=== PATIENT | female | born 1975 | race Caucasian/White ===

== ENCOUNTER → 2019-04-26 14:27 | Outpatient (BNVA) | payer OTHER, SELFPAY | PROVIDERS: Family Provider Family Medicine; PCP Family Medicine; Referring Provider Internal Medicine Rheumatology; Visit Provider Internal Medicine Rheumatology | DX: M05.9 Rheumatoid arthritis with rheumatoid factor, unspecified (principal); Z79.899 Other long term (current) drug therapy; Z11.59 Encounter for screening for other viral diseases; Z72.89 Other problems related to lifestyle | CPT/HCPCS: 36415; 80076; 82565; 85651; 86140; 86704; 99214 ==

== ENCOUNTER → 2019-04-26 15:11 | Outpatient (BNVA) | payer OTHER, SELFPAY | PROVIDERS: Family Provider Family Medicine; PCP Family Medicine; Referring Provider Internal Medicine Rheumatology; Visit Provider Internal Medicine Rheumatology | DX: Z79.899 Other long term (current) drug therapy (principal); Z11.59 Encounter for screening for other viral diseases; M05.741 Rheumatoid arthritis with rheumatoid factor of right hand without organ or systems involvement; Z71.89 Other specified counseling | CPT/HCPCS: 85025 ==

== ENCOUNTER → 2019-07-19 14:52 | Outpatient (BNVA) | payer OTHER, SELFPAY | PROVIDERS: Family Provider Family Medicine; PCP Family Medicine; Visit Provider Internal Medicine Rheumatology | DX: Z79.899 Other long term (current) drug therapy (principal) | CPT/HCPCS: 36415; 80076; 82565; 85025; 85651; 86140 ==

== ENCOUNTER → 2019-08-15 13:14 | Outpatient (BNVA) | payer OTHER, SELFPAY | PROVIDERS: Family Provider Family Medicine; PCP Family Medicine; Visit Provider Internal Medicine Rheumatology | DX: M05.79 Rheumatoid arthritis with rheumatoid factor of multiple sites without organ or systems involvement (principal); Z79.899 Other long term (current) drug therapy; R53.83 Other fatigue; G47.9 Sleep disorder, unspecified; Z92.241 Personal history of systemic steroid therapy | CPT/HCPCS: 99214 ==

== ENCOUNTER → 2019-09-18 12:55 | Outpatient (BNVA) | payer OTHER, SELFPAY | PROVIDERS: Family Provider Family Medicine; PCP Family Medicine; Visit Provider Internal Medicine Rheumatology | DX: Z79.899 Other long term (current) drug therapy (principal) | CPT/HCPCS: 36415; 80076; 82565; 85025; 85651; 86140 ==

== ENCOUNTER → 2019-12-21 10:25 | Outpatient (BNVA) | payer OTHER, SELFPAY | PROVIDERS: Family Provider Family Medicine; PCP Family Medicine; Visit Provider Internal Medicine Rheumatology | DX: M05.79 Rheumatoid arthritis with rheumatoid factor of multiple sites without organ or systems involvement (principal); Z79.52 Long term (current) use of systemic steroids; G47.9 Sleep disorder, unspecified; Z79.899 Other long term (current) drug therapy | CPT/HCPCS: 36415; 80076; 82565; 85025; 85651; 86140; 99214 ==

== ENCOUNTER 2020-05-01 11:33 | Outpatient (CLI) | payer OTHER, SELFPAY ==
[2020-05-01 12:11] LABS: Basophils % 0.5 %; Eosinophils # 0.3 10^3/uL (0.0-0.8); Eosinophils % 3.7 %; Hematocrit 36.7 % (37.0-47.0); Hemoglobin 12.3 g/dL (11.5-15.3); Lymphocytes # 3.5 10^3/uL (0.8-4.8); Lymphocytes % 40.9 %; Mean Corpuscular HGB Conc 33.5 g/dL (30.0-36.0); Mean Corpuscular Volume 98.4 fL (81-99); Monocytes # 0.6 10^3/uL (0.2-0.9); Monocytes % 6.8 %; Neutrophils # 4.09 10^3/uL (1.8-7.7); Neutrophils % 47.9 %; Nucleated Red Blood Cells % 0 %; Platelet Count 229 10^3/cmm (130-400); Red Blood Count 3.73 10^6/uL (4.1-5.3); Red Cell Distribution Width 13.5 % (12.1-15.1); White Blood Count 8.5 10^3/uL (4.0-10.0)
[2020-05-01 12:27] LABS: Alanine Aminotransferase 35 U/L (0-33); Albumin Level 4.4 g/dL (3.5-5.2); Alkaline Phosphatase 89 IU/L (35-105); Aspartate Amino Transferase 28 U/L (0-32); C Reactive Protein 7.6 mg/L (0.0-4.9); Globulin 3.1 g/dL (1.3-4.6); Glomerular Filtration Rate 90.9 mL/min (90-130); Total Bilirubin 0.3 mg/dL (0.15-1.2); Total Protein 7.5 g/dL (6.6-8.7)
== END 2020-05-01 11:34 | disposition home or self-care (01) ==
PROVIDERS: PCP Family Medicine; Visit Provider Internal Medicine Rheumatology
DX: M05.79 Rheumatoid arthritis with rheumatoid factor of multiple sites without organ or systems involvement (principal); M05.9 Rheumatoid arthritis with rheumatoid factor, unspecified; Z79.899 Other long term (current) drug therapy
CPT/HCPCS: 36415; 80076; 82565; 85025; 86140

== ENCOUNTER → 2020-05-07 08:50 | Outpatient (BNVA) | payer OTHER, SELFPAY | PROVIDERS: PCP Family Medicine; Visit Provider Internal Medicine Rheumatology | DX: M05.79 Rheumatoid arthritis with rheumatoid factor of multiple sites without organ or systems involvement (principal); Z79.899 Other long term (current) drug therapy; Z11.1 Encounter for screening for respiratory tuberculosis | CPT/HCPCS: 99214 ==

== ENCOUNTER 2020-05-07 09:47 | Outpatient (CLI) | payer OTHER, SELFPAY ==
[2020-05-09 15:18] LABS: Quantiferon Mitogen 8.39 IU/mL; Quantiferon Nil 0.05 IU/mL; Quantiferon TB Gold NEGATIVE (NEGATIVE)
== END 2020-05-07 09:48 | disposition home or self-care (01) ==
PROVIDERS: PCP Family Medicine; Visit Provider Internal Medicine Rheumatology
DX: Z79.899 Other long term (current) drug therapy (principal); Z11.59 Encounter for screening for other viral diseases; M05.79 Rheumatoid arthritis with rheumatoid factor of multiple sites without organ or systems involvement
CPT/HCPCS: 36415; 86480

== ENCOUNTER → 2020-07-31 09:45 | Outpatient (BNVA) | payer OTHER, SELFPAY | PROVIDERS: PCP Family Medicine; Visit Provider Internal Medicine Rheumatology | DX: M05.79 Rheumatoid arthritis with rheumatoid factor of multiple sites without organ or systems involvement (principal); Z79.899 Other long term (current) drug therapy | CPT/HCPCS: 36415; 80076; 82565; 85025; 86140 ==

== ENCOUNTER → 2020-08-05 08:49 | Outpatient (BNVA) | payer OTHER, SELFPAY | PROVIDERS: PCP Family Medicine; Visit Provider Internal Medicine Rheumatology | DX: M05.79 Rheumatoid arthritis with rheumatoid factor of multiple sites without organ or systems involvement (principal); Z79.899 Other long term (current) drug therapy; Z79.52 Long term (current) use of systemic steroids | CPT/HCPCS: 99214 ==

== ENCOUNTER → 2020-09-03 13:18 | Outpatient (BNVA) | payer OTHER, SELFPAY | PROVIDERS: PCP Family Medicine; Visit Provider Internal Medicine Rheumatology | DX: M05.79 Rheumatoid arthritis with rheumatoid factor of multiple sites without organ or systems involvement (principal); Z79.899 Other long term (current) drug therapy; Z71.89 Other specified counseling | CPT/HCPCS: 36415; 80076; 82565; 85025; 86140 ==

== ENCOUNTER 2020-10-22 08:11 | Outpatient (CLI) | payer OTHER, SELFPAY ==
--- NOTE | 2020-10-22 08:17 | MM_ITS ---
WS: [id number] BILATERAL DIGITAL SCREENING MAMMOGRAPHY WITH CAD CLINICAL INFORMATION: SCREENING HISTORY: Screening mammogram. No current complaints. COMPARISON: None. TECHNIQUE: Bilateral CC and MLO views. FINDINGS: Scattered fibroglandular densities bilaterally. No suspicious focal mass, asymmetry, calcifications, or architectural distortion. No evidence of malignancy. MM/[place] [id number] IMPRESSION: BI-RADS: 1-Negative FOLLOW UP: 1 Year Follow-up Recommend return to annual screening mammography.
== END 2020-10-22 08:12 | disposition home or self-care (01) ==
PROVIDERS: PCP Family Medicine; Visit Provider Family Medicine
DX: Z12.31 Encounter for screening mammogram for malignant neoplasm of breast (principal)
CPT/HCPCS: 77067

== ENCOUNTER → 2020-10-29 09:02 | Outpatient (BNVA) | payer OTHER, SELFPAY | PROVIDERS: PCP Family Medicine; Visit Provider Internal Medicine Rheumatology | DX: M05.79 Rheumatoid arthritis with rheumatoid factor of multiple sites without organ or systems involvement (principal) | CPT/HCPCS: 36415; 80076; 82565; 85025; 86140 ==

== ENCOUNTER → 2020-11-05 09:03 | Outpatient (BNVA) | payer OTHER, SELFPAY | PROVIDERS: PCP Family Medicine; Visit Provider Internal Medicine Rheumatology | DX: M05.79 Rheumatoid arthritis with rheumatoid factor of multiple sites without organ or systems involvement (principal); R53.83 Other fatigue; Z79.899 Other long term (current) drug therapy; Z79.52 Long term (current) use of systemic steroids; Z71.89 Other specified counseling | CPT/HCPCS: 36415; 82306; 84439; 84443; 99214 ==

== ENCOUNTER 2021-02-25 08:35 | Outpatient (CLI) | payer OTHER, SELFPAY ==
[2021-02-25 09:16] LABS: Basophils % 0.5 %; Eosinophils # 0.5 10^3/uL (0.0-0.8); Eosinophils % 6.8 %; Hematocrit 39.6 % (37.0-47.0); Hemoglobin 13.2 g/dL (11.5-15.3); Lymphocytes # 2.4 10^3/uL (0.8-4.8); Lymphocytes % 35.8 %; Mean Corpuscular HGB Conc 33.3 g/dL (30.0-36.0); Mean Corpuscular Hemoglobin 33.2 pg (28.0-34.0); Mean Corpuscular Volume 99.7 fl (81-99); Mean Platelet Volume 9.3 fL (7.4-10.4); Monocytes # 0.4 10^3/uL (0.2-0.9); Monocytes % 6.7 %; Neutrophils # 3.28 10^3/uL (1.8-7.7); Neutrophils % 49.9 %; Nucleated Red Blood Cells % 0 %; Platelet Count 202 10^3/cmm (130-400); Red Blood Count 3.97 10^6/uL (4.1-5.3); Red Cell Distribution Width 12.1 % (12.1-15.1); White Blood Count 6.6 10^3/uL (4.0-10.0)
[2021-02-25 09:33] LABS: Alanine Aminotransferase 54 U/L (0-33); Albumin Level 4.5 g/dL (3.5-5.2); Alkaline Phosphatase 90 IU/L (35-105); Aspartate Amino Transferase 33 U/L (0-32); C Reactive Protein 5.2 mg/L (0.0-4.9); Globulin 2.7 g/dL (1.3-4.6); Glomerular Filtration Rate 108.6 mL/min (90-130); Total Bilirubin 0.3 mg/dL (0.15-1.2); Total Protein 7.2 g/dL (6.6-8.7)
[2021-04-17 08:38] LABS: Alanine Aminotransferase 23 U/L (0-33); Albumin Level 4.3 g/dL (3.5-5.2); Alkaline Phosphatase 93 IU/L (35-105); Aspartate Amino Transferase 28 U/L (0-32); Globulin 3.4 g/dL (1.3-4.6); Total Bilirubin 0.3 mg/dL (0.15-1.2); Total Protein 7.7 g/dL (6.6-8.7)
== END 2021-02-25 08:36 | disposition home or self-care (01) ==
PROVIDERS: PCP Family Medicine; Visit Provider Internal Medicine Rheumatology
DX: M05.79 Rheumatoid arthritis with rheumatoid factor of multiple sites without organ or systems involvement (principal); Z79.899 Other long term (current) drug therapy
CPT/HCPCS: 36415; 80076; 82565; 85025; 86140

== ENCOUNTER 2021-04-17 07:43 | Outpatient (CLI) | payer OTHER, SELFPAY | END 2021-04-17 07:44 | disposition home or self-care (01) | PROVIDERS: PCP Family Medicine; Visit Provider Internal Medicine Rheumatology | DX: Z79.899 Other long term (current) drug therapy (principal); M05.79 Rheumatoid arthritis with rheumatoid factor of multiple sites without organ or systems involvement | CPT/HCPCS: 36415; 80076 ==

== ENCOUNTER 2021-07-04 11:23 | Outpatient (CLI) | payer OTHER, SELFPAY ==
[2021-07-04 12:00] LABS: Basophils # 0.1 10^3/uL (0.0-0.1); Basophils % 0.8 %; Eosinophils # 0.4 10^3/uL (0.0-0.8); Eosinophils % 5.1 %; Hematocrit 39.4 % (37.0-47.0); Hemoglobin 13.3 g/dL (11.5-15.3); Lymphocytes # 3.7 10^3/uL (0.8-4.8); Lymphocytes % 52.3 %; Mean Corpuscular HGB Conc 33.8 g/dL (30.0-36.0); Mean Corpuscular Hemoglobin 32.5 pg (28.0-34.0); Mean Corpuscular Volume 96.3 fl (81-99); Mean Platelet Volume 9.2 fL (7.4-10.4); Monocytes # 0.5 10^3/uL (0.2-0.9); Monocytes % 6.8 %; Neutrophils # 2.46 10^3/uL (1.8-7.7); Neutrophils % 34.7 %; Nucleated Red Blood Cells % 0 %; Platelet Count 325 10^3/cmm (130-400); Red Blood Count 4.09 10^6/uL (4.1-5.3); White Blood Count 7.1 10^3/uL (4.0-10.0)
[2021-07-04 12:11] LABS: Alkaline Phosphatase 105 IU/L (35-105); C Reactive Protein 5.8 mg/L (0.0-4.9); Glomerular Filtration Rate 108.1 mL/min (90-130); Total Bilirubin 0.3 mg/dL (0.15-1.2)
[2021-07-04 12:13] LABS: Alanine Aminotransferase 38 U/L (0-33); Aspartate Amino Transferase 43 U/L (0-32)
== END 2021-07-04 11:24 | disposition home or self-care (01) ==
PROVIDERS: PCP Family Medicine; Visit Provider Internal Medicine Rheumatology
DX: M05.79 Rheumatoid arthritis with rheumatoid factor of multiple sites without organ or systems involvement (principal); Z79.899 Other long term (current) drug therapy
CPT/HCPCS: 80076; 82565; 85025; 86140

== ENCOUNTER 2021-10-30 09:26 | Outpatient (CLI) | payer OTHER, SELFPAY ==
[2021-10-30 10:02] LABS: Basophils # 0.1 10^3/uL (0.0-0.1); Basophils % 0.6 %; Eosinophils # 0.3 10^3/uL (0.0-0.8); Hematocrit 39.8 % (37.0-47.0); Hemoglobin 13.6 g/dL (11.5-15.3); Lymphocytes # 3.6 10^3/uL (0.8-4.8); Lymphocytes % 46.4 %; Mean Corpuscular HGB Conc 34.2 g/dL (30.0-36.0); Mean Corpuscular Hemoglobin 32.6 pg (28.0-34.0); Mean Corpuscular Volume 95.4 fl (81-99); Mean Platelet Volume 9.6 fL (7.4-10.4); Monocytes # 0.6 10^3/uL (0.2-0.9); Monocytes % 7.5 %; Neutrophils # 3.23 10^3/uL (1.8-7.7); Neutrophils % 41.2 %; Nucleated Red Blood Cells % 0 %; Platelet Count 205 10^3/cmm (130-400); Red Blood Count 4.17 10^6/uL (4.1-5.3); Red Cell Distribution Width 11.9 % (12.1-15.1); White Blood Count 7.8 10^3/uL (4.0-10.0)
[2021-10-30 10:25] LABS: Alanine Aminotransferase 16 U/L (0-33); Albumin Level 4.5 g/dL (3.5-5.2); Alkaline Phosphatase 97 U/L (35-105); Aspartate Amino Transferase 19 U/L (0-32); C Reactive Protein 4.1 mg/L (0.0-4.9); Globulin 3.2 g/dL (1.3-4.6); Glomerular Filtration Rate 90.5 mL/min (90-130); Total Bilirubin 0.3 mg/dL (0.15-1.2); Total Protein 7.7 g/dL (6.6-8.7)
== END 2021-10-30 09:27 | disposition home or self-care (01) ==
LOC: LAB 09:30
PROVIDERS: PCP Family Medicine; Visit Provider Internal Medicine Rheumatology
DX: M05.79 Rheumatoid arthritis with rheumatoid factor of multiple sites without organ or systems involvement (principal); Z79.899 Other long term (current) drug therapy
CPT/HCPCS: 80076; 82565; 85025; 86140

== ENCOUNTER 2022-02-05 13:01 | Outpatient (CLI) | payer OTHER, SELFPAY ==
[2022-02-05 13:26] LABS: Basophils # 0.1 10^3/uL (0.0-0.1); Basophils % 0.5 %; Eosinophils # 0.6 10^3/uL (0.0-0.8); Eosinophils % 5.5 %; Hematocrit 40.1 % (37.0-47.0); Hemoglobin 13.4 g/dL (11.5-15.3); Lymphocytes # 4.5 10^3/uL (0.8-4.8); Lymphocytes % 42.9 %; Mean Corpuscular HGB Conc 33.4 g/dL (30.0-36.0); Mean Corpuscular Hemoglobin 32.4 pg (28.0-34.0); Mean Corpuscular Volume 97.1 fl (81-99); Mean Platelet Volume 9.1 fL (7.4-10.4); Monocytes # 0.6 10^3/uL (0.2-0.9); Monocytes % 5.6 %; Neutrophils # 4.74 10^3/uL (1.8-7.7); Neutrophils % 45.3 %; Nucleated Red Blood Cells % 0 %; Platelet Count 268 10^3/cmm (130-400); Red Blood Count 4.13 10^6/uL (4.1-5.3); Red Cell Distribution Width 11.9 % (12.1-15.1); White Blood Count 10.4 10^3/uL (4.0-10.0)
[2022-02-05 13:47] LABS: Alanine Aminotransferase 9 U/L (0-33); Albumin Level 4.3 g/dL (3.5-5.2); Alkaline Phosphatase 96 U/L (35-105); Aspartate Amino Transferase 19 U/L (0-32); C Reactive Protein 6.1 mg/L (0.0-4.9); Globulin 3.8 g/dL (1.3-4.6); Glomerular Filtration Rate 90.5 mL/min (90-130); Total Bilirubin 0.2 mg/dL (0.15-1.2); Total Protein 8.1 g/dL (6.6-8.7)
== END 2022-02-05 13:02 | disposition home or self-care (01) ==
PROVIDERS: PCP Family Medicine; Visit Provider Internal Medicine Rheumatology
DX: M05.79 Rheumatoid arthritis with rheumatoid factor of multiple sites without organ or systems involvement (principal); Z79.899 Other long term (current) drug therapy
CPT/HCPCS: 36415; 80076; 82565; 85025; 86140

== ENCOUNTER 2022-06-11 08:02 | Outpatient (CLI) | payer OTHER, SELFPAY ==
[2022-06-11 08:19] LABS: Basophils % 0.4 %; Eosinophils # 0.5 10^3/uL (0.0-0.8); Hematocrit 36.4 % (37.0-47.0); Lymphocytes # 3.4 10^3/uL (0.8-4.8); Lymphocytes % 45.3 %; Mean Corpuscular Hemoglobin 31.7 pg (28.0-34.0); Monocytes # 0.5 10^3/uL (0.2-0.9); Monocytes % 6.5 %; Neutrophils # 3.12 10^3/uL (1.8-7.7); Neutrophils % 41.5 %; Nucleated Red Blood Cells % 0 %; Platelet Count 277 10^3/cmm (130-400); Red Blood Count 3.79 10^6/uL (4.1-5.3); Red Cell Distribution Width 12.6 % (12.1-15.1); White Blood Count 7.5 10^3/uL (4.0-10.0)
[2022-06-11 08:48] LABS: Alanine Aminotransferase 50 U/L (0-33); Albumin Level 4.1 g/dL (3.5-5.2); Alkaline Phosphatase 90 U/L (35-105); Aspartate Amino Transferase 37 U/L (0-32); C Reactive Protein 7.1 mg/L (0.0-4.9); Globulin 3.4 g/dL (1.3-4.6); Glomerular Filtration Rate 90.1 mL/min (90-130); Total Bilirubin 0.3 mg/dL (0.15-1.2); Total Protein 7.5 g/dL (6.6-8.7)
== END 2022-06-11 08:03 | disposition home or self-care (01) ==
LOC: LAB 08:06
PROVIDERS: PCP Family Medicine; Visit Provider Internal Medicine Rheumatology
DX: M05.79 Rheumatoid arthritis with rheumatoid factor of multiple sites without organ or systems involvement (principal); Z79.899 Other long term (current) drug therapy
CPT/HCPCS: 36415; 80076; 82565; 85025; 86140

== ENCOUNTER 2022-07-17 11:22 | Outpatient (CLI) | payer OTHER, SELFPAY ==
[2022-07-17 12:27] LABS: Alanine Aminotransferase 14 U/L (0-33); Albumin Level 4.4 g/dL (3.5-5.2); Alkaline Phosphatase 100 U/L (35-105); Aspartate Amino Transferase 19 U/L (0-32); Globulin 3.5 g/dL (1.3-4.6); Total Bilirubin 0.3 mg/dL (0.15-1.2); Total Protein 7.9 g/dL (6.6-8.7)
== END 2022-07-17 11:23 | disposition home or self-care (01) ==
LOC: RAD 11:25
PROVIDERS: PCP Family Medicine; Visit Provider Internal Medicine Rheumatology
DX: M05.9 Rheumatoid arthritis with rheumatoid factor, unspecified (principal); Z79.899 Other long term (current) drug therapy
CPT/HCPCS: 36415; 80076

== ENCOUNTER 2022-10-13 08:02 | Outpatient (CLI) | payer OTHER, SELFPAY ==
[2022-10-13 08:20] LABS: Basophils % 0.5 %; Eosinophils # 0.4 10^3/uL (0.0-0.8); Eosinophils % 5.8 %; Hematocrit 35.8 % (36-47); Lymphocytes # 3.1 10^3/uL (0.8-4.8); Lymphocytes % 48.5 %; Mean Corpuscular HGB Conc 33.2 g/dL (30-55); Mean Corpuscular Hemoglobin 32.2 pg (27-33); Mean Corpuscular Volume 96.8 fl (85-98); Mean Platelet Volume 9.2 fL (7.4-10.4); Monocytes # 0.5 10^3/uL (0.2-0.9); Monocytes % 7.8 %; Neutrophils % 37.2 %; Nucleated Red Blood Cells % 0 %; Platelet Count 222 10^3/cmm (157-399); Red Cell Distribution Width 12.5 % (12.1-15.1); White Blood Count 6.43 10^3/uL (3.29-11.43)
[2022-10-13 08:38] LABS: Alanine Aminotransferase 18 U/L (0-33); Albumin Level 4.1 g/dL (3.5-5.2); Alkaline Phosphatase 80 U/L (35-105); Aspartate Amino Transferase 22 U/L (0-32); C Reactive Protein 7.3 mg/L (0.0-4.9); Glomerular Filtration Rate 90.1 mL/min (90-130); Total Bilirubin 0.3 mg/dL (0.15-1.2); Total Protein 7.1 g/dL (6.6-8.7)
== END 2022-10-13 08:03 | disposition home or self-care (01) ==
PROVIDERS: PCP Family Medicine; Visit Provider Internal Medicine Rheumatology
DX: M05.79 Rheumatoid arthritis with rheumatoid factor of multiple sites without organ or systems involvement (principal); Z79.899 Other long term (current) drug therapy
CPT/HCPCS: 36415; 80076; 82565; 85025; 86140

== ENCOUNTER → 2023-02-16 10:23 | Outpatient (BNVA) | payer OTHER, SELFPAY | PROVIDERS: PCP Family Medicine; Visit Provider Internal Medicine Rheumatology | DX: M05.79 Rheumatoid arthritis with rheumatoid factor of multiple sites without organ or systems involvement (principal); Z79.899 Other long term (current) drug therapy; Z71.89 Other specified counseling | CPT/HCPCS: 36415; 80076; 82565; 85025; 86140 ==

== ENCOUNTER 2023-05-20 07:57 | Outpatient (CLI) | payer OTHER, SELFPAY ==
[2023-05-20 08:22] LABS: Basophils % 0.3 %; Eosinophils # 0.4 10^3/uL (0.0-0.8); Eosinophils % 5.4 %; Hematocrit 37.2 % (36-47); Lymphocytes % 40.3 %; Mean Corpuscular HGB Conc 33.1 g/dL (30-55); Mean Corpuscular Hemoglobin 32.2 pg (27-33); Mean Corpuscular Volume 97.4 fl (85-98); Mean Platelet Volume 9.1 fL (7.4-10.4); Monocytes # 0.6 10^3/uL (0.2-0.9); Monocytes % 7.3 %; Neutrophils # 3.51 10^3/uL (1.8-7.7); Neutrophils % 46.6 %; Nucleated Red Blood Cells % 0 %; Platelet Count 213 10^3/cmm (157-399); Red Blood Count 3.82 10^6/uL (3.85-5.65); Red Cell Distribution Width 12.5 % (12.1-15.1); White Blood Count 7.54 10^3/uL (3.29-11.43)
[2023-05-20 08:41] LABS: Alanine Aminotransferase 28 U/L (0-33); Albumin Level 4.1 g/dL (3.5-5.2); Alkaline Phosphatase 89 U/L (35-105); Aspartate Amino Transferase 27 U/L (0-32); C Reactive Protein 6.1 mg/L (0.0-4.9); Globulin 3.2 g/dL (1.3-4.6); Glomerular Filtration Rate 89.7 mL/min (90-130); Total Bilirubin 0.2 mg/dL (0.15-1.2); Total Protein 7.3 g/dL (6.6-8.7)
== END 2023-05-20 07:58 | disposition home or self-care (01) ==
LOC: LAB 07:58
PROVIDERS: PCP Family Medicine; Visit Provider Internal Medicine Rheumatology
DX: M05.79 Rheumatoid arthritis with rheumatoid factor of multiple sites without organ or systems involvement (principal); Z79.899 Other long term (current) drug therapy
CPT/HCPCS: 36415; 80076; 82565; 85025; 86140

== ENCOUNTER 2023-05-28 10:16 | Outpatient (CLI) | payer OTHER, SELFPAY ==
--- NOTE | 2023-05-28 10:21 | MM_ITS ---
WS: [id number] BILATERAL SCREENING DIGITAL TOMOSYNTHESIS MAMMOGRAM WITH CAD HISTORY: SCREENING COMPARISON: 10/22/2020 Bilateral CC and MLO views with tomosynthesis and synthetic mammography submitted. Computer aided det ection analyzed. Breast composition: There are scattered areas of fibroglandular density. No suspicious masses, microc alcifications or architectural distortion. IMPRESSION: MM/[place] [id number] BI-RADS: 1-Negative FOLLOW UP: 1 Year Follow-up
== END 2023-05-28 10:17 | disposition home or self-care (01) ==
LOC: RAD 10:16
PROVIDERS: PCP Family Medicine; Visit Provider Family Medicine
DX: Z12.31 Encounter for screening mammogram for malignant neoplasm of breast (principal)
CPT/HCPCS: 77063; 77067

== ENCOUNTER 2023-08-18 10:44 | Outpatient (CLI) | payer OTHER, SELFPAY ==
[2023-08-18 11:14] LABS: Basophils % 0.5 %; Eosinophils # 0.3 10^3/uL (0.0-0.8); Eosinophils % 3.9 %; Hematocrit 37.9 % (36-47); Lymphocytes # 3.6 10^3/uL (0.8-4.8); Lymphocytes % 44.9 %; Mean Corpuscular HGB Conc 33.8 g/dL (30-55); Mean Corpuscular Hemoglobin 32.2 pg (27-33); Mean Corpuscular Volume 95.2 fl (85-98); Mean Platelet Volume 9.6 fL (7.4-10.4); Monocytes # 0.5 10^3/uL (0.2-0.9); Monocytes % 6.1 %; Neutrophils # 3.53 10^3/uL (1.8-7.7); Neutrophils % 44.5 %; Nucleated Red Blood Cells % 0 %; Platelet Count 229 10^3/cmm (157-399); Red Blood Count 3.98 10^6/uL (3.85-5.65); Red Cell Distribution Width 12.8 % (12.1-15.1); White Blood Count 7.93 10^3/uL (3.29-11.43)
[2023-08-18 11:38] LABS: Alanine Aminotransferase 21 U/L (0-33); Albumin Level 4.3 g/dL (3.5-5.2); Alkaline Phosphatase 86 U/L (35-105); Aspartate Amino Transferase 20 U/L (0-32); C Reactive Protein 3.9 mg/L (0.0-4.9); Globulin 3.6 g/dL (1.3-4.6); Glomerular Filtration Rate 76.9 mL/min (90-130); Total Bilirubin 0.2 mg/dL (0.15-1.2); Total Protein 7.9 g/dL (6.6-8.7)
== END 2023-08-18 10:45 | disposition home or self-care (01) ==
LOC: LAB 10:46
PROVIDERS: PCP Family Medicine; Visit Provider Internal Medicine Rheumatology
DX: M05.79 Rheumatoid arthritis with rheumatoid factor of multiple sites without organ or systems involvement (principal); Z79.899 Other long term (current) drug therapy
CPT/HCPCS: 36415; 80076; 82565; 85025; 86140

== ENCOUNTER → 2023-10-25 11:44 | Outpatient (BNVA) | payer OTHER, SELFPAY | PROVIDERS: PCP Family Medicine; Visit Provider Obstetrics & Gynecology | DX: Z01.419 Encounter for gynecological examination (general) (routine) without abnormal findings (principal) | CPT/HCPCS: 87624 ==

== ENCOUNTER 2023-11-26 08:03 | Outpatient (CLI) | payer OTHER, SELFPAY ==
[2023-11-26 08:26] LABS: Basophils % 0.3 %; Eosinophils # 0.2 10^3/uL (0.0-0.8); Eosinophils % 3.3 %; Hematocrit 36.4 % (36-47); Lymphocytes # 2.6 10^3/uL (0.8-4.8); Lymphocytes % 35.9 %; Mean Corpuscular HGB Conc 33.5 g/dL (30-55); Mean Corpuscular Hemoglobin 32.8 pg (27-33); Mean Corpuscular Volume 97.8 fl (85-98); Mean Platelet Volume 9.2 fL (7.4-10.4); Monocytes # 0.5 10^3/uL (0.2-0.9); Monocytes % 6.2 %; Neutrophils # 3.94 10^3/uL (1.8-7.7); Nucleated Red Blood Cells % 0 %; Platelet Count 256 10^3/cmm (157-399); Red Blood Count 3.72 10^6/uL (3.85-5.65); Red Cell Distribution Width 13.1 % (12.1-15.1); White Blood Count 7.29 10^3/uL (3.29-11.43)
[2023-11-26 08:41] LABS: Erythrocyte Sedimentation Rate 7 mm/hr (0-15)
[2023-11-26 08:49] LABS: Alanine Aminotransferase 19 U/L (0-33); Albumin Level 4.2 g/dL (3.5-5.2); Alkaline Phosphatase 77 U/L (35-105); Aspartate Amino Transferase 16 U/L (0-32); C Reactive Protein 20.3 mg/L (0.0-4.9); Globulin 3.2 g/dL (1.3-4.6); Glomerular Filtration Rate 76.9 mL/min (90-130); Total Bilirubin 0.3 mg/dL (0.15-1.2); Total Protein 7.4 g/dL (6.6-8.7)
[2023-11-29 13:25] LABS: Quantiferon Mitogen 7.77 IU/mL; Quantiferon Nil 0.02 IU/mL; Quantiferon Plus TB1 0.01 IU/mL; Quantiferon Plus TB2 0.01 IU/mL; Quantiferon TB Gold NEGATIVE (NEGATIVE)
== END 2023-11-26 08:04 | disposition home or self-care (01) ==
LOC: LAB 08:04
PROVIDERS: PCP Family Medicine; Visit Provider Internal Medicine Rheumatology
DX: Z79.899 Other long term (current) drug therapy (principal); M05.79 Rheumatoid arthritis with rheumatoid factor of multiple sites without organ or systems involvement; Z11.1 Encounter for screening for respiratory tuberculosis
CPT/HCPCS: 36415; 80076; 82565; 85025; 85651; 86140; 86480

== ENCOUNTER 2024-02-25 11:25 | Outpatient (CLI) | payer OTHER, SELFPAY ==
[2024-02-25 11:48] LABS: Basophils % 0.4 %; Eosinophils # 0.4 10^3/uL (0.0-0.8); Eosinophils % 3.9 %; Hematocrit 35.7 % (36-47); Lymphocytes # 3.1 10^3/uL (0.8-4.8); Lymphocytes % 29.4 %; Mean Corpuscular HGB Conc 33.9 g/dL (30-55); Mean Corpuscular Hemoglobin 32.4 pg (27-33); Mean Corpuscular Volume 95.5 fl (85-98); Mean Platelet Volume 9.4 fL (7.4-10.4); Monocytes # 0.6 10^3/uL (0.2-0.9); Monocytes % 5.9 %; Neutrophils # 6.42 10^3/uL (1.8-7.7); Nucleated Red Blood Cells % 0 %; Platelet Count 239 10^3/cmm (157-399); Red Blood Count 3.74 10^6/uL (3.85-5.65); Red Cell Distribution Width 12.2 % (12.1-15.1); White Blood Count 10.69 10^3/uL (3.29-11.43)
[2024-02-25 11:51] LABS: Erythrocyte Sedimentation Rate 22 mm/hr (0-15)
[2024-02-25 12:03] LABS: Alanine Aminotransferase 6 U/L (0-33); Albumin Level 3.9 g/dL (3.5-5.2); Alkaline Phosphatase 111 U/L (35-105); Aspartate Amino Transferase 11 U/L (0-32); C Reactive Protein 143.1 mg/L (0.0-4.9); Globulin 3.9 g/dL (1.3-4.6); Glomerular Filtration Rate 107.2 mL/min (90-130); Total Bilirubin 0.2 mg/dL (0.15-1.2); Total Protein 7.8 g/dL (6.6-8.7)
== END 2024-02-25 11:26 | disposition home or self-care (01) ==
LOC: LAB 11:28
PROVIDERS: PCP Family Medicine; Visit Provider Internal Medicine Rheumatology
DX: M05.79 Rheumatoid arthritis with rheumatoid factor of multiple sites without organ or systems involvement (principal); Z79.899 Other long term (current) drug therapy
CPT/HCPCS: 80076; 82565; 85025; 85651; 86140

== ENCOUNTER 2024-03-23 11:41 | Day surgery (SDC) | payer OTHER, SELFPAY ==
[2024-03-23] VITALS (9 sets, daily range): BP systolic 126–150; BP diastolic 81–101; PULSE 80–120; RESP 16–18; TEMP 36.1–36.8; O2SAT 97–100; BMI 27.4
--- NOTE | 2024-03-23 03:45 | W.PM.OPSFHP ---
Same Day Surgery H&P Indication for Procedure/HPI DATE OF PROCEDURE: March 23, 2024 CHIEF COMPLAINT/INDICATIONFOR SURGICAL PROCEDURE: abnormal uterine bleeding PREOP DIAGNOSIS: abnormal uterine bleeding PLANNED PROCEDURE: Operation Date: 03/23/24 13:30 Proposed Procedures p Hysteroscopy w/ Endometrial Sampling 74854, N93.9(Not Applicable) - David Gillette MD s Possible Poylpectomy(Not Applicable) - David Gillette MD 49 y.o. with abnormal uterine bleeding, prolonged and heavy menstrual bleeding, now scheduled for hysteroscopy, endometrial sampling, and possible endometrial polypectomy Medications/Allergies* Home Medications ?Medication ?Instructions ?Recorded ?Confirmed ?Type multivitamin 1 tab PO DAILY 10/25/23 03/22/24 History paroxetine HCl 10 mg tablet 10 mg PO .HS 02/29/24 03/22/24 History ergocalciferol (vitamin D2) 400 50 mcg PO DAILY 03/22/24 03/22/24 History unit capsule vitamin B complex tab PO 03/22/24 History zinc 50 mg tablet 50 mg PO DAILY 03/22/24 03/22/24 History Allergies/Adverse Reactions Allergy/AdvReac Type Severity Reaction Status Date / Time amoxicillin Allergy Unknown Verified 03/22/24 08:47 aspirin AdvReac Intermediate N/V Verified 03/22/24 08:47 Pertinent History/Comorbid Conditions* Medical History (Updated 11/08/23 @ 00:07 by David Gillette MD) Transaminitis Sleep disorder Fatigue Seropositive rheumatoid arthritis of multiple sites Seropositive rheumatoid arthritis Rheumatoid arthritis Joint pain High risk medication use Immunization counseling Surgical History (Updated 04/26/19 @ 15:20 by Silas Varela MD) History of tubal ligation Family History (Updated 10/25/23 @ 08:23 by Amira Gonzalez LPN) Thyroid cancer Father Mother Hypertension Father Mother Denies family history of Colon cancer Ovarian cancer Prostate cancer Diabetes Heart disease Breast cancer Uterine cancer Stroke Social History Smoking and tobacco/nicotine status: never used tobacco/nicotine Pertinent Exam Findings alert, oriented x 3, clear to auscultation bilaterally and regular rate & rhythm Recommendations Surgery/Procedure today Coding Level of Care Code Acute Code for Chg Fwd Time Spent (min) 20
[2024-03-23] MEDS: sodium chloride 0.9% 1,000 ML 30 ML IV (12:10)
[2024-03-23] MEDS: scopolamine 1 mg PATCH 1 PATCH TRANSDERMA (12:13)
[2024-03-23 12:15] LABS: OR HCG Qualitative Urine Negative (Negative)
--- NOTE | 2024-03-23 12:15 | ANES.PREANE2 ---
Pre-Anesthetic Assessment Height/Weight: Height 5 ft 2 in Weight 150 lb Temp Pulse Resp BP Pulse Ox O2 Del Method 98.2 F 112 H 16 150/101 97 Room Air 03/23/24 11:54 03/23/24 11:54 03/23/24 11:54 03/23/24 11:54 03/23/24 11:54 03/23/24 11:58 Preop Diagnosis: abnormal uterine bleeding Operation Date: 03/23/24 13:30 Proposed Procedures p Hysteroscopy w/ Endometrial Sampling 29079, N93.9(Not Applicable) - David Gillette MD s Possible Poylpectomy(Not Applicable) - David Gillette MD Was Beta Nilesh taken within 24 hours: N/A Was Clonidine taken within 24 hours: N/A Last intake: Intake Last Liquid Date 03/22/24 Last Liquid Time 20:00 Last Solid Date 03/22/24 Last Solid Time 20:00 Social No alcohol and No tobacco Exam alert, oriented x 3, clear to auscultation bilaterally and regular rate & rhythm Airway Submandibular: within normal limits Cervical ROM: within normal limits Mallampati: Class II Dentition: full Anesthetic Plan ASA status: 2 Anesthesia: General Other: Patient states she has severe PONV after anesthesia, scopolamine patch applied. Plan for TIVA anesthetic NPO since yesterday Recently placed on amlodipine for hypertension. Preop BP 150/101 Patient just completed antibiotics for sinus infection, minimal congestion. No fevers currently Patient has rheumatoid arthritis on adalimumab. Patient takes prednisone 5 mg when she has flares Labs 02/25/2024 reviewed and acceptable for procedure Patient is an active individual Plan for general anesthesia Medications/Allergies Home Medications ?Medication ?Instructions ?Recorded ?Confirmed ?Last Taken ?Type pantoprazole 40 mg tablet,delayed See Rx Instructions PO DAILY #30 07/09/21 03/22/24 03/22/24 Rx release tabs prednisone 5 mg tablet See Rx Instructions PO .COMPLEX 02/16/23 03/22/24 Unknown Rx PRN joint pain flare #30 tabs diclofenac sodium 1 % topical gel 2 g topical QID #100 grams 08/24/23 03/22/24 Unknown Rx multivitamin 1 tab PO DAILY 10/25/23 03/22/24 03/22/24 History norethindrone 1.5 mg-ethinyl 1 tab PO DAILY #84 tabs 10/25/23 03/23/24 03/23/24 06:00 Rx estradiol 30 mcg(21)/iron 75 mg(7) tablet (Junel FE 1.5/30 (28)) adalimumab 40 mg/0.4 mL 40 mg (0.4 mL) SUBCUT Q14D #2 ea 02/29/24 03/22/24 Unknown Rx subcutaneous syringe kit (Humira(CF)) amlodipine 5 mg tablet (Norvasc) 5 mg PO DAILY #30 tabs 02/29/24 03/23/24 03/23/24 06:00 Rx paroxetine HCl 10 mg tablet 10 mg PO .HS 02/29/24 03/22/24 03/22/24 History sulfasalazine 500 mg tablet 0.5 g PO BID #180 tabs 02/29/24 03/22/24 03/22/24 Rx ergocalciferol (vitamin D2) 400 50 mcg PO DAILY 03/22/24 03/22/24 03/22/24 History unit capsule vitamin B complex tab PO 03/22/24 03/22/24 History zinc 50 mg tablet 50 mg PO DAILY 03/22/24 03/22/24 03/22/24 History Allergies Allergy/AdvReac Type Severity Reaction Status Date / Time amoxicillin Allergy Unknown Verified 03/23/24 11:53 aspirin AdvReac Intermediate N/V Verified 03/23/24 11:53 Current Medications Generic Name Dose Route Start Last Admin Trade Name Freq PRN Reason Stop Dose Admin Sodium Chloride 1,000 mls @ 30 mls/hr 03/23/24 12:00 03/23/24 12:10 Sodium Chloride 0.9% IV 03/24/24 11:59 30 mls/hr .Q24H BING Administration PFSH Anesthesia Medical History Transaminitis Sleep disorder Fatigue Seropositive rheumatoid arthritis of multiple sites Seropositive rheumatoid arthritis Rheumatoid arthritis Joint pain High risk medication use Immunization counseling Surgical History History of tubal ligation Family History Father Hypertension Thyroid cancer Mother Hypertension Thyroid cancer Denies family history of Colon cancer Ovarian cancer Prostate cancer Diabetes Heart disease Breast cancer Uterine cancer Stroke Social History Smoking and tobacco/nicotine status: never used tobacco/nicotine Data Anesthesia Cardiac Studies: No Data to Display
--- NOTE | 2024-03-23 13:17 | W.PM.OPSUD ---
Surgery/Procedure H&P Update DATE OF PROCEDURE: March 23, 2024 DATE H&P PERFORMED: 03/22/24 H&P UPDATE INFORMATION: I have reviewed H&P completed within last 30 days, I have examined patient prior to procedure and No changes to prior documentation PREOP DIAGNOSIS: abnormal uterine bleeding PLANNED PROCEDURE: Operation Date: 03/23/24 13:30 Proposed Procedures p Hysteroscopy w/ Endometrial Sampling 39810, N93.9(Not Applicable) - David Gillette MD s Possible Poylpectomy(Not Applicable) - David Gillette MD
--- NOTE | 2024-03-23 14:10 | PM.OP ---
Operative Report Date of procedure: March 23, 2024 Pre-op diagnosis: abnormal uterine bleeding Post-op diagnosis: same Post-op findings: normal endometrial cavity No polyps / fibroids Minimal endometrial tissue Procedure done: hysteroscopy Curettage of uterus Implants: none Specimens removed/disposition: endometrial curettings Surgeon: David Gillette MD Anesthesia: MAC Estimated blood loss (mL): 0 Complications: none Findings: normal endometrial cavity No polyps / fibroids Minimal endometrial tissue Condition: stable Disposition: PACU Brief History: 49 y.o. with abnormal uterine bleeding Procedure: Informed consent signed. Patient was taken to the operating room. Anesthesia was induced. Patient was placed in dorsolithotomy position, prepped and draped for hysteroscopy. A bivalve speculum was placed in the vagina. The anterior lip of the cervix was grasped with a sharp-toothed tenaculum. The cervix was serially dilated with Hegar dilators. . A hysteroscope was placed into the endometrial cavity. The endometrial cavity was seen to be normal. There were no polyps or fibroids. There was a minimal amount of endometrial tissue. The hysteroscope was then removed. Endometrial curettage was done with a sharp curette. Endometrial tissue was sent to pathology. The sharp-toothed tenaculum was removed. There was no bleeding from the endometrial cavity or cervix. The patient was then placed supine and awakened and taken to the PACU. Postop condition: stable EBL: none Sponge and instruments counts were normal x 2 Complications: none
== END 2024-03-23 14:55 | disposition home or self-care (01) ==
PROVIDERS: PCP Family Medicine; Visit Provider Obstetrics & Gynecology
PROC: 0UJD8ZZ Inspection of Uterus and Cervix, Via Natural or Artificial Opening Endoscopic (ICD-10-PCS; CPT 58555; principal; 2024-03-23 13:20)
DX: N93.9 Abnormal uterine and vaginal bleeding, unspecified (principal); M05.89 Other rheumatoid arthritis with rheumatoid factor of multiple sites; Z79.899 Other long term (current) drug therapy; Z88.8 Allergy status to other drugs, medicaments and biological substances; Z88.0 Allergy status to penicillin
CPT/HCPCS: 58558; 81025; 88305; J1100; J2250; J2405; J2704; J3010; J7030

== ENCOUNTER 2024-06-20 10:33 | Outpatient (CLI) | payer OTHER, SELFPAY ==
[2024-06-20 11:16] LABS: Basophils % 0.4 %; Eosinophils # 0.2 10^3/uL (0.0-0.8); Eosinophils % 2.3 %; Hematocrit 35.6 % (36-47); Lymphocytes % 30.3 %; Mean Corpuscular HGB Conc 32.9 g/dL (30-55); Mean Corpuscular Hemoglobin 31.8 pg (27-33); Mean Corpuscular Volume 96.7 fl (85-98); Mean Platelet Volume 8.9 fL (7.4-10.4); Monocytes # 0.6 10^3/uL (0.2-0.9); Monocytes % 5.6 %; Neutrophils # 6.03 10^3/uL (1.8-7.7); Nucleated Red Blood Cells % 0 %; Platelet Count 285 10^3/cmm (157-399); Red Blood Count 3.68 10^6/uL (3.85-5.65); Red Cell Distribution Width 12.1 % (12.1-15.1); White Blood Count 9.88 10^3/uL (3.29-11.43)
[2024-06-20 11:41] LABS: Alanine Aminotransferase 14 U/L (0-33); Albumin Level 4.2 g/dL (3.5-5.2); Alkaline Phosphatase 102 U/L (35-105); Aspartate Amino Transferase 15 U/L (0-32); Globulin 3.5 g/dL (1.3-4.6); Glomerular Filtration Rate 89.3 mL/min (90-130); Total Bilirubin 0.2 mg/dL (0.15-1.2); Total Protein 7.7 g/dL (6.6-8.7)
== END 2024-06-20 10:34 | disposition home or self-care (01) ==
PROVIDERS: PCP Family Medicine; Visit Provider Internal Medicine Rheumatology
DX: M05.79 Rheumatoid arthritis with rheumatoid factor of multiple sites without organ or systems involvement (principal); Z79.899 Other long term (current) drug therapy
CPT/HCPCS: 80076; 82565; 85025; 86140

== ENCOUNTER 2024-08-01 15:22 | Observation (INO) | payer OTHER, SELFPAY ==
--- NOTE | 2024-07-31 23:36 | W.PM.OPSFHP ---
Same Day Surgery H&P Indication for Procedure/HPI DATE OF PROCEDURE: July 31, 2024 CHIEF COMPLAINT/INDICATIONFOR SURGICAL PROCEDURE: menorrhagia, dysmenorrhea PREOP DIAGNOSIS: menorrhagia, dysmenorrhea PLANNED PROCEDURE: Operation Date: 08/01/24 07:00 Proposed Procedures p Laparoscopic Assist Vaginal Hysterectomy 45796 N93.9(Not Applicable) - David Gillette MD 49 y.o. with long history of menorrhagia and dysmenorrhea Medications/Allergies* Home Medications ?Medication ?Instructions ?Recorded ?Confirmed ?Type paroxetine HCl 10 mg tablet 10 mg PO .HS 02/29/24 07/31/24 History ergocalciferol (vitamin D2) 400 50 mcg PO DAILY 03/22/24 07/31/24 History unit capsule vitamin B complex tab PO 03/22/24 06/27/24 History zinc 50 mg tablet 50 mg PO DAILY 03/22/24 07/31/24 History acetaminophen 500 mg capsule 1,000 mg PO .Q12hr osteoarthritis 06/27/24 07/31/24 History amlodipine 5 mg tablet (Norvasc) 10 mg PO DAILY 07/31/24 07/31/24 History Allergies/Adverse Reactions Allergy/AdvReac Type Severity Reaction Status Date / Time amoxicillin Allergy Unknown Verified 06/27/24 10:49 aspirin AdvReac Intermediate N/V Verified 06/27/24 10:49 Pertinent History/Comorbid Conditions* Medical History (Updated 11/08/23 @ 00:07 by David Gillette MD) Transaminitis Sleep disorder Fatigue Seropositive rheumatoid arthritis of multiple sites Seropositive rheumatoid arthritis Rheumatoid arthritis Joint pain High risk medication use Immunization counseling Surgical History (Updated 04/26/19 @ 15:20 by Silas Varela MD) History of tubal ligation Family History (Updated 10/25/23 @ 08:23 by Amira Gonzalez LPN) Thyroid cancer Father Mother Hypertension Father Mother Denies family history of Colon cancer Ovarian cancer Prostate cancer Diabetes Heart disease Breast cancer Uterine cancer Stroke Social History Smoking and tobacco/nicotine status: never used tobacco/nicotine Pertinent Exam Findings alert, oriented x 3, clear to auscultation bilaterally and regular rate & rhythm Recommendations Surgery/Procedure today Coding Level of Care Code Acute Code for Chg Fwd
[2024-08-01] VITALS (18 sets, daily range): BP systolic 97–150; BP diastolic 57–85; PULSE 66–105; RESP 9–21; TEMP 36.1–36.9; O2SAT 93–100; BMI 26.9
[2024-08-01] MEDS: scopolamine 1 mg PATCH 1 PATCH TRANSDERMA (06:31)
[2024-08-01] MEDS: sodium chloride 0.9% 1,000 ML 30 ML IV (06:31)
--- NOTE | 2024-08-01 06:37 | ANES.PREANE2 ---
Pre-Anesthetic Assessment Height/Weight: Height 1.57 m Weight 66.678 kg Temp Pulse Resp BP Pulse Ox O2 Del Method 97.5 F L 88 18 150/85 98 Room Air 08/01/24 06:11 08/01/24 06:11 08/01/24 06:11 08/01/24 06:31 08/01/24 06:11 08/01/24 06:14 Preop Diagnosis: menorrhagia, dysmenorrhea Operation Date: 08/01/24 07:00 Proposed Procedures p Laparoscopic Assist Vaginal Hysterectomy 20696 N93.9(Not Applicable) - David Gillette MD Familial anesthetic complications: None Was Beta Nilesh taken within 24 hours: N/A Was Clonidine taken within 24 hours: N/A Last intake: Intake Last Liquid Date 07/31/24 Last Liquid Time 21:30 Last Solid Date 07/31/24 Last Solid Time 21:30 Social No alcohol and No tobacco Exam alert, oriented x 3, clear to auscultation bilaterally and regular rate & rhythm Airway Mallampati: Class II Dentition: full CV/HEM Hypertension Musc/sk Rheumatoid Arthritis Anesthetic Plan ASA status: 3 Anesthesia: General Risk of > 500 ml blood loss (7ml/kg in children): No Medications/Allergies Home Medications ?Medication ?Instructions ?Recorded ?Confirmed ?Last Taken ?Type pantoprazole 40 mg tablet,delayed See Rx Instructions PO DAILY #30 07/09/21 07/31/24 07/31/24 Rx release tabs paroxetine HCl 10 mg tablet 10 mg PO .HS 02/29/24 07/31/24 07/30/24 History ergocalciferol (vitamin D2) 400 50 mcg PO DAILY 03/22/24 07/31/24 03/22/24 History unit capsule vitamin B complex tab PO 03/22/24 06/27/24 07/31/24 History zinc 50 mg tablet 50 mg PO DAILY 03/22/24 07/31/24 07/31/24 History acetaminophen 500 mg capsule 1,000 mg PO .Q12hr osteoarthritis 06/27/24 07/31/24 Unknown History adalimumab-atto 40 mg/0.4 mL 40 mg (0.4 mL) SUBCUT Q14D #0.8 mL 06/27/24 07/31/24 Unknown Rx subcutaneous syringe (Warren(CF)) diclofenac sodium 1 % topical gel 2 g topical QID #100 grams 06/27/24 07/31/24 Unknown Rx prednisone 5 mg tablet See Rx Instructions PO .COMPLEX 06/27/24 07/31/24 Unknown Rx PRN joint pain flare #30 tabs sulfasalazine 500 mg tablet 0.5 g PO BID #180 tabs 06/27/24 07/31/24 08/01/24 Rx amlodipine 5 mg tablet (Norvasc) 10 mg PO DAILY 07/31/24 07/31/24 08/01/24 History Allergies Allergy/AdvReac Type Severity Reaction Status Date / Time amoxicillin Allergy Unknown Verified 06/27/24 10:49 aspirin AdvReac Intermediate N/V Verified 06/27/24 10:49 Current Medications Generic Name Dose Route Start Last Admin Trade Name Freq PRN Reason Stop Dose Admin Sodium Chloride 1,000 mls @ 30 mls/hr 08/01/24 06:00 08/01/24 06:31 Sodium Chloride 0.9% IV 08/02/24 05:59 30 mls/hr .Q24H BING Administration PFSH Anesthesia Medical History Transaminitis Sleep disorder Fatigue Seropositive rheumatoid arthritis of multiple sites Seropositive rheumatoid arthritis Rheumatoid arthritis Joint pain High risk medication use Immunization counseling Surgical History History of tubal ligation Family History Father Hypertension Thyroid cancer Mother Hypertension Thyroid cancer Denies family history of Colon cancer Ovarian cancer Prostate cancer Diabetes Heart disease Breast cancer Uterine cancer Stroke Social History Smoking and tobacco/nicotine status: never used tobacco/nicotine
--- NOTE | 2024-08-01 06:50 | W.PM.OPSUD ---
Surgery/Procedure H&P Update DATE OF PROCEDURE: August 01, 2024 DATE H&P PERFORMED: 07/31/24 H&P UPDATE INFORMATION: I have reviewed H&P completed within last 30 days, I have examined patient prior to procedure and No changes to prior documentation PREOP DIAGNOSIS: menorrhagia, dysmenorrhea PLANNED PROCEDURE: Operation Date: 08/01/24 07:00 Proposed Procedures p Laparoscopic Assist Vaginal Hysterectomy 08290 N93.9(Not Applicable) - David Gillette MD
[2024-08-01] MEDS: ceFAZolin 2,000 mg SDV 2000 MG IVP (07:25)
[2024-08-01] MEDS: metroNIDAZOLE IV 500 MG/100 ML PREMIX 100 MG IV (07:25)
[2024-08-01] MEDS: lidocaine-epi 1% 20 mL INJ INJECTION (09:10)
--- NOTE | 2024-08-01 10:04 | PM.OP2 ---
Brief Operative Note Date of procedure: 08/01/24 Pre-op diagnosis: menorrhagia, dysmenorrhea Post-op diagnosis: same Procedure Done: laparoscopic-assisted vaginal hysterectomy Surgeon: David Gillette Complications: none Post-op Plan: floor Coding Level of Care Code Acute Code for Chg Fwd
--- NOTE | 2024-08-01 10:55 | ANE.PACU2 ---
Inpatient post-anesthesia follow up: Airway intact: Yes Vital signs: Temperature 97 F Pulse Rate 88 Respiratory Rate 16 Blood Pressure 113/62 Pulse Oximetry 99 Oxygen Delivery Me thod Room Air Oxygen Flow Rate Fraction of Inspir ed Oxygen Hydration adequate: Yes Nausea and vomiting: No Pain level: 1 Mental status: Baseline
[2024-08-01] MEDS: fentaNYL 50 mcg/mL INJ 2mL IVP (11:49)
[2024-08-01] MEDS: ketorolac 30 mg/mL INJ IVP ×2 (14:15→21:52)
--- NOTE | 2024-08-01 15:50 | PM.OP ---
Operative Report Date of procedure: August 01, 2024 Pre-op diagnosis: menorrhagia, dysmenorrhea Post-op diagnosis: same Post-op findings: Mildly enlarged soft uterus c/w adenomyosis Normal ovaries Fallopian tubes remnants from previous bilateral salpingectomy Procedure done: Laparoscopic assisted vaginal hysterectomy Implants: none Specimens removed/disposition: uterus Surgeon: David Gillette MD Anesthesia: General Estimated blood loss (mL): 300 Complications: none Findings: Mildly enlarged soft uterus c/w adenomyosis Normal ovaries Fallopian tubes remnants from previous bilateral salpingectomy Condition: stable Disposition: PACU Brief History: 49 y.o. with menorrhagia and dysmenorrhea Procedure: The patient was taken to the operating room, placed supine on the table. General endotracheal anesthesia was induced. A hyman catheter was placed which drained clear urine. The patient was placed in dorsolithotomy position for laparoscopic surgery. The abdomen and perineum were prepped and draped in the usual sterile fashion. A Zumi uterine elevator was placed via the cervix for manipulation of the uterus. An intra-umbilical incision was made measuring approximately 1 cm. A Veress needle was inserted. After confirming intraperitoneal entry, a pneumoperitoneum was achieved. The Veress needle was removed. A trocar with sheath was placed. A laparoscope was inserted and used to visualize the pelvic organs. Normal ovaries were seen. The uterus was normal-sized. There was evidence of previous bilateral tubal ligation. The liver edge was normal. Two additional skin incisions were made in the right and left mid-abdominal quadrants, measuring 0.5 cm. 5 mm trocars were inserted under laparoscopic visualization. A Ligasure device and endograsper were placed. The Ligasure device was used to divide the round ligaments on both sides followed by the uteroovarian ligaments. These were successfully coagulated and divided without any bleeding. This was carried down the sides of the uterus to the uterine arteries. It was then decided to proceed vaginally to complete the vaginal hysterectomy portion of the procedure. The pneumoperitoneum was allowed to escape. The Zumi was removed. A vaginal Bookwalter retractor was placed. The cervicovaginal junction was incised and the anterior and posterior cul-de-sacs were entered without any injury to the underlying organs including the bowel and the bladder. The uterine vessels on both sides were then divided and coagulated without any difficulties. The uterus was removed. No bleeding was seen. The vaginal cuff was then closed using a running suture of O-Vicryl. A vaginal pack was placed. The pneumoperitoneum was re-instituted and the pelvis was examined using the laparoscope to confirm good hemostasis. Following this, all instruments were removed from the abdomen after the pneumoperitoneum was allowed to escape. The laparoscopic skin incisions were then closed using 4-O skin sutures. The patient was placed supine and taken to the recovery room. Postoperative condition stable EBL: 300 cc Complications: none To PACU in good condition
[2024-08-01] MEDS: HYDROcodone-acetaminophen 5-325 mg Tablet PO (17:49)
[2024-08-01] MEDS: docusate sodium 100 mg Capsule PO (17:49)
[2024-08-01] MEDS: dextrose 5%-lactated ringers 1,000 ML 125 ML IV (18:55)
[2024-08-02] MEDS: dextrose 5%-lactated ringers 1,000 ML 125 ML IV (04:01)
[2024-08-02] MEDS: ketorolac 30 mg/mL INJ IVP (04:01)
--- NOTE | 2024-08-02 05:46 | PC.NURSE ---
Packing and hyman catheter removed at 0545. Catheter intact and packing removed in one piece. Patient tolerated well.
[2024-08-02 05:59] LABS: Hematocrit 26.4 % (36-47); Mean Corpuscular HGB Conc 32.2 g/dL (30-55); Mean Corpuscular Hemoglobin 31.4 pg (27-33); Mean Corpuscular Volume 97.4 fl (85-98); Mean Platelet Volume 9.5 fL (7.4-10.4); Platelet Count 199 10^3/cmm (157-399); Red Blood Count 2.71 10^6/uL (3.85-5.65); Red Cell Distribution Width 13.4 % (12.1-15.1); White Blood Count 11.45 10^3/uL (3.29-11.43)
[2024-08-02] MEDS: ibuprofen 800 mg tablet PO (09:44)
[2024-08-02] MEDS: docusate sodium 100 mg Capsule PO (09:44)
[2024-08-02 09:45] VITALS: BP 123/68; PULSE 95; RESP 15; TEMP 36.7; O2SAT 97
[2024-08-02 11:06] VITALS: BP 123/68; PULSE 95; RESP 16; TEMP 36.7; O2SAT 97
[2024-08-02 11:34] LABS: OR HCG Qualitative Urine Negative (Negative)
--- NOTE | 2024-08-02 12:15 | PM.OBGYPN ---
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: No c/o Mild abdominal pain, relieved with pain medications Eating, voiding, ambulating well No bleeding Vitals/I&O/Wt Last Vital Signs Temp 98.0 F 08/02/24 11:06 Pulse 95 08/02/24 11:06 Resp 16 08/02/24 11:06 BP 123/68 08/02/24 11:06 Pulse Ox 97 08/02/24 11:06 O2 Del Method Room Air 08/02/24 09:45 08/02/24 08/02/24 08/02/24 06:59 14:59 22:59 Intake Total 1000 / 2900 Output Total 575 / 2575 550 / 550 Balance 425 / 325 -550 / -550 Weight last 48 hrs Weight 146 lb 15.715 oz Weight 147 lb Physical Exam Narrative: General comfortable, awake, alert VS afebrile, normal Lungs: clear Cor: RRR Abd: soft, nontender. Laparoscopic wounds clean and dry Ext: normal Urinary Catheter Management: Cerrato: Cath Placed During This Visit: yes, but has since been removed by the nurse Reason for Continuing Indwelling Catheter: Decision to DC Catheter Urinary Catheter Date of Insertion: 08/01/24 Urinary Catheter Time of Insertion: 07:25 Date Urinary Catheter Removed: 08/02/24 Time Urinary Catheter Discontinued: 05:45 Data 08/02/24 05:50 A&P Assessment and plan (1) S/P hysterectomy: POD #1 s/p LAVH Doing well Plan discharge to home today Precautions / instructions given Call / return if fever, chills, pain, bleeding, nausea, vomiting, leg pain or swelling f/u in one week PDMP PDMP Reviewed: Not Reviewed Attestations Medical Necessity Statement*: patient s/p hysterectomy, plan to discharge to home today Coding Level of Care Code Acute Code for Chg Fwd Diagnoses S/P hysterectomy Z90.710
--- NOTE | 2024-08-02 12:35 | P.DS_ITS ---
Discharge Providers [employer] Date of Admission: 08/01/24 15:22 Date of Discharge: 08/02/24 Attending Provider at Admission: David Gillette MD Attending Provider at Discharge: David Gillette MD Consults: none Primary [employer]: David Gillette MD Primary Care Provider: Bill Ellison MD Diagnoses at Discharge Discharge Diagnosis (1) S/P hysterectomy: Details from hospital stay: 49 y.o. with history of menorrhagia and dysmenorrhea admitted for hysterectomy Laparoscopic-assisted vaginal hysterectomy was performed without any complications patient did well postoperatively and was discharged to home on the first postoperative day Status: Acute Reason for Visit Reason for Visit: N93.9 Brief History: 49 y.o. with history of menorrhagia and dysmenorrhea admitted for hysterectomy Hospital Course Hospital Course 49 y.o. with history of menorrhagia and dysmenorrhea admitted for hysterectomy Laparoscopic-assisted vaginal hysterectomy was performed without any complications patient did well postoperatively and was discharged to home on the first postoperative day Physical Exam Narrative: General comfortable, awake, alert VS afebrile, normal Lungs: clear Cor: RRR Abd: soft, nontender. Laparoscopic wounds clean and dry Ext: normal Urinary Catheter Management: Cerrato: Cath Placed During This Visit: yes, but has since been removed by the nurse Reason for Continuing Indwelling Catheter: Decision to DC Catheter Urinary Catheter Date of Insertion: 08/01/24 Urinary Catheter Time of Insertion: 07:25 Date Urinary Catheter Removed: 08/02/24 Time Urinary Catheter Discontinued: 05:45 History History History 2 Term 2 0 Miscarriages/Ectopic 0 Living Children 2 Discharge Data Studies Completed and Pending Pending at discharge Category Date Time Status ES surgery / GI images Routine Exams 08/01/24 07:43 Ordered Pathology: Surgical [PTH] Routine Pth 08/01/24 09:09 Received Laboratory Results WBC 11.45 10^3/uL (3.29-11.43) H 08/02/24 05:50 RBC 2.71 10^6/uL (3.85-5.65) L 08/02/24 05:50 Hgb 8.50 g/dL (11.27-16.99) L 08/02/24 05:50 Hct 26.4 % (36-47) L 08/02/24 05:50 MCV 97.4 fl (85-98) 08/02/24 05:50 MCH 31.4 pg (27-33) 08/02/24 05:50 MCHC 32.2 g/dL (30-55) 08/02/24 05:50 RDW 13.4 % (12.1-15.1) 08/02/24 05:50 Plt Count 199 10^3/cmm (157-399) 08/02/24 05:50 MPV 9.5 fL (7.4-10.4) 08/02/24 05:50 Urine HCG, Qual Negative (Negative) 08/01/24 06:07 Blood Type O Positive 08/01/24 06:17 Rho(D) Type Rh positive 08/01/24 06:17 Antibody Screen Negative 08/01/24 06:17 Procedures Performed laparoscopic-assisted vaginal hysterectomy Vitals Last Vital Signs Temp 98.0 F 08/02/24 11:06 Pulse 95 08/02/24 11:06 Resp 16 08/02/24 11:06 BP 123/68 08/02/24 11:06 Pulse Ox 97 08/02/24 11:06 O2 Del Method Room Air 08/02/24 09:45 Results Labs OB ([facility]): Blood Type O Positive 08/01/24 Antibody Screen Negative 08/01/24 Hct, (36-47) 26.4 % L Today Hgb, (11.27-16.99) 8.50 g/dL L Today Rho(D) Type Rh positive 08/01/24 Plt Count, (157-399) 199 10^3/cmm Today Pap Smear Interpret See note 10/25/23 Discharge Plan Discharge Patient Disposition: Home Condition: Stable Prescriptions: Continued pantoprazole 40 mg tablet,delayed release (DR/EC) See Rx Instructions PO DAILY Qty: 30 3RF Rx Instructions: take in AM 30 minutes before meal PO daily; paroxetine HCl 10 mg tablet 10 mg PO .HS diclofenac sodium 1 % gel 2 g topical QID Qty: 100 2RF Rx Instructions: apply to affected area as needed prednisone 5 mg tablet See Rx Instructions PO .COMPLEX PRN (Reason: joint pain flare) Qty: 30 1RF Rx Instructions: take 1-2 daily for 5-7 days prn joint pain flare PO PRN; sulfasalazine 500 mg tablet 0.5 g PO BID Qty: 180 1RF Amjevita(CF) 40 mg/0.4 mL syringe 40 mg SUBCUT Q14D Qty: 0.8 5RF acetaminophen 500 mg capsule 1,000 mg PO .Q12hr vitamin B complex Tablet Extended Release PO ergocalciferol (vitamin D2) 400 unit Capsule 50 mcg PO DAILY zinc 50 mg Tablet 50 mg PO DAILY amlodipine [Norvasc] 5 mg tablet 10 mg PO DAILY Discharge Orders: Discharge Order (Routine); Ordered 08/02/24 Ordered By: David Gillette Referrals: David Gillette MD [Physician, [employer]] - 08/09/24 10:00 am Discharge Diet: Usual diet Discharge Activity: Increase activity as tolerated Patient Instructions: Acute Wound Care (DC), Laparoscopic Hysterectomy (GEN), OB Laproscopic Surgery - [facility], Opioid Safety, Post Anesthesia Care, Patient Portal & Krzysztof Instructions Discharge Attestations [employer] Time Spent in Discharge Care*: less than 30 min Coding Level of Care Code Acute Code for Chg Fwd Diagnoses S/P hysterectomy Z90.710
== END 2024-08-02 11:15 | disposition home or self-care (01) ==
LOC: OBGYN 15:22
PROVIDERS: Anesthesiology; Admitting Provider Obstetrics & Gynecology; PCP Family Medicine; Visit Provider Obstetrics & Gynecology
PROC: 0UT9FZZ Resection of Uterus, Via Natural or Artificial Opening With Percutaneous Endoscopic Assistance (ICD-10-PCS; CPT 58550; principal; 2024-08-01 07:00)
DX: N92.0 Excessive and frequent menstruation with regular cycle (principal); N94.6 Dysmenorrhea, unspecified; K21.9 Gastro-esophageal reflux disease without esophagitis; I10 Essential (primary) hypertension; G47.9 Sleep disorder, unspecified
CPT/HCPCS: 58550; 36415; 51702; 81025; 85027; 86850; 86900; 88307; A4216; G0378; J0690; J1100; J1171; J1885; J2250; J2371; J2405; J2704; J3010; J3490; J7030; J7121; J9999

== ENCOUNTER 2024-08-18 10:01 | Outpatient (CLI) | payer OTHER, SELFPAY ==
--- NOTE | 2024-08-18 10:05 | MM_ITS ---
WS: [id number] BILATERAL 3D TOMOSYNTHESIS DIGITAL SCREENING MAMMOGRAPHY WITH CAD CLINICAL INFORMATION: SCREENING HISTORY: Screening mammogram. No current complaints. COMPARISON: 2023 TECHNIQUE: Bilateral CC and MLO views. FINDINGS: Scattered fibroglandular densities bilaterally. No suspicious focal mass, asymmetry, calcifications, or architectural distortion. No evidence of malignancy. MM/MM scr BI tomosynthesis [id number] IMPRESSION: DENSITY: There are scattered areas of fibroglandular density. BI-RADS: 1 - Negative. FOLLOW UP: 1 Year Follow-up Recommend return to annual screening mammography.
== END 2024-08-18 10:02 | disposition home or self-care (01) ==
LOC: RAD 10:02
PROVIDERS: PCP Family Medicine; Visit Provider Family Medicine
DX: Z12.31 Encounter for screening mammogram for malignant neoplasm of breast (principal)
CPT/HCPCS: 77063; 77067

== ENCOUNTER 2024-09-29 08:02 | Outpatient (CLI) | payer OTHER, SELFPAY ==
[2024-09-29 08:23] LABS: Hematocrit 38.0 % (36-47); Hemoglobin 12.80 g/dL (11.27-16.99); Mean Corpuscular HGB Conc 33.7 g/dL (30-55); Mean Corpuscular Hemoglobin 31.5 pg (27-33); Mean Corpuscular Volume 93.6 fl (85-98); Nucleated Red Blood Cells % 0 %; Platelet Count 237 10^3/cmm (157-399); Red Blood Count 4.06 10^6/uL (3.85-5.65); White Blood Count 8.84 10^3/uL (3.29-11.43)
[2024-09-29 08:46] LABS: Alanine Aminotransferase 22 U/L (0-33); Albumin Level 4.5 g/dL (3.5-5.2); Alkaline Phosphatase 106 U/L (35-105); Aspartate Amino Transferase 22 U/L (0-32); Globulin 3.3 g/dL (1.3-4.6); Total Protein 7.8 g/dL (6.6-8.7)
== END 2024-09-29 08:03 | disposition home or self-care (01) ==
LOC: LAB 08:04
PROVIDERS: PCP Family Medicine; Visit Provider Internal Medicine Rheumatology
DX: M05.79 Rheumatoid arthritis with rheumatoid factor of multiple sites without organ or systems involvement (principal); Z79.899 Other long term (current) drug therapy
CPT/HCPCS: 80076; 82565; 85025; 85651; 86140